=== PATIENT | female | born 1980 | race American Indian/Alaskan Native ===

== ENCOUNTER 2016-05-08 09:47 | Outpatient (CLI) | payer MEDICAID, OTHER ==
[2016-05-08 10:29] VITALS: BP 105/56
--- NOTE | 2016-05-08 11:58 | Ultrasound Report ---
ULTRASOUND BIOPHYSICAL PROFILE: History: well being Technique: Transabdominal ultrasound with Doppler interrogation. 2 - breathing movements 2 - movements 2 - posture and tone 2 - Qualitative amniotic fluid volume 8 - TOTAL SCORE OF POSSIBLE 8 Heart Rate (bpm) 142
--- NOTE | 2016-05-08 11:58 | Ultrasound Report ---
ULTRASOUND OB LIMITED History: well being Technique: Transabdominal ultrasound with Doppler interrogation. Gestation: Single Position: Cephalic Amniotic Fluid: Normal TRUDI = 17.5 cm Heart Rate: 142 BPM
== END 2016-05-08 12:30 | disposition home or self-care (01) ==
LOC: TRG 09:47
PROVIDERS: ATTEND Obstetrics & Gynecology
DX: O47.1 False labor at or after 37 completed weeks of gestation (principal); Z3A.38 38 weeks gestation of pregnancy
CPT/HCPCS: 59025; 76815; 76819